=== PATIENT | male | born 1935 | race Caucasian/White ===

== ENCOUNTER 2017-10-02 07:14 | Day surgery (SDC) | payer MEDICARE ==
[2017-10-01 10:39] VITALS: BMI 31.4
[~2017-10-02 07:14] MED LIST: FLU VACC TS2017-18 (>65YR) 0.5 ML SYRINGE IM ONE
[2017-10-02 08:22] VITALS: BP 129/60; TEMP 97.2
--- NOTE | 2017-10-02 09:00 | RAD ---
RADIOGRAPH LUMBAR SPINE 4 VIEWS: HISTORY: 82-year-old male with low back pain and bilateral lumbar radiculopathy. TECHNIQUE: All standing views: AP, lateral neutral, lateral flexion, and lateral extension. COMPARISON: None. FINDINGS: There is diffuse osteopenia. Mild left lateral curvature with apex at L3. No major spondylolisthesis. Large flowing anterior endplate marginal osteophytes protruding into the prevertebral space, through out the visualized portions of the lower thoracic spine and throughout the lumbar spine except for L4 -5 and L5-S1. No major spondylolisthesis. T12-L1: Disc space maintained. L1-2: Disc space maintained. Mild, broad, shallow depression of the superior endplate of L2. L2-3: Slight degenerative retrolisthesis of L2 on L3 during flexion, which reduces in neutral and ext ension positions. L3-4: Moderate disc space narrowing. Midline laminectomy defect. L4-5: Severe disc space narrowing, with endplate sclerosis. Midline laminectomy defect. Bilateral onl ay bone chip fusion grafts around the posterior elements. L5-S1: Posterior aspect of the disc space is narrowed while the anterior aspect of the disc space is widened. Midline laminectomy defect. Bilateral onlay posterior element bone graft fusion chips. IMPRESSION: 1. DISH (Diffuse idiopathic skeletal hyperostosis). 2. Osteopenia. 3. Lumbar spondylosis with degenerative disc disease, greatest at L4-5, followed by L3-4. 4. Old mild compression fracture of L2. 5. Status post laminectomies and posterior element onlay bone graft fusions at the lower levels. 6. Minimally unstable degenerative retrolisthesis at L2-3. 7. Otherwise, no major spondylolisthesis. 8. See separate report of the CT myelogram. TRU POS: JAMES
--- NOTE | 2017-10-02 12:09 | CT ---
CT LUMBAR SPINE WITH CONTRAST CT GUIDED LUMBAR MYELOGRAM: Date: 10-02-17 History: 82-year-old male with chronic low back pain and bilateral lumbar radiculopathy. Comparison: No prior studies available. Technique: Signed informed consent obtained. Review of the metal fabricator welder images demonstrated hypertrophic bony changes, especially of the posterior elements, which would make fluoroscopically guided lumbar myelogram diffi cult. Therefore, it was elected to perform the procedure under CT guidance. Patient was placed prone on the CT table. Midline skin of lower back was prepped and draped in the usual sterile fashion. 25 g auge needle was used to apply buffered Lidocaine superficially and deeply. From the midline approach, a 3.5 inch, 22 gauge spinal needle was advanced under incremental step CT guidance, through the lami nectomy defect at L5-S1, into the thecal sac. Upon brisk return of clear CSF, a total of 10 ml of CSF was slowly removed, then slowly replaced with 10 ml of Isovue M300. Needle was removed. Patient crbrent rated the procedure very well. No complications. The patient was then placed on the stretcher. He was then tilted in various positions to allow even distribution of the intrathecal contrast material. Micah powell was then placed supine on the CT table and scan was performed from the T11-12 level to the S2-3 level. Coronal and sagittal reconstructions were obtained. FINDINGS: There are five lumbar type vertebrae. There is a mild left-convex lateral curvature with apex of curv ature at approximately L3-4. There is mild anterior wedge compression deformity of L2, representing a mild old compression fracture. There are bulky bridging flowing osteophytes throughout the lower tho racic spine, and upper and mid lumbar spine (DISH). The spinal canal is diffusely small in caliber on a congenital basis due to developmentally short pedicles. This is exacerbated by hypertrophic degene rative changes as described below. There is heavy atherosclerotic calcification of the abdominal aort a, common iliac arteries, internal iliac arteries, external iliac arteries, celiac artery, hepatic ar elena, splenic artery, superior mesenteric artery, and bilateral renal arteries. No aneurysm of the ab dominal aorta. No major pathology of the retroperitoneal or perivertebral spaces. T11-12: Mild central spinal canal stenosis almost entirely on developmental basis. Neural foramina ar e incompletely included on the images. Moderate bony hypertrophy of right facet complex. Mild degener ative hypertrophy of left facet complex. Mild disc bulge. T12-L1: Right posterior aspect of epidural fat pad is asymmetrically larger than the left, mildly ind enting the right posterior aspect of the thecal sac. Minimal disc bulge. Mild central spinal canal st enosis, mostly on a developmental basis. No high grade neural foraminal stenosis. No high grade disc space narrowing. L1-2: Conus medullaris terminates at lower L1 level. No high grade disc space narrowing. Mild diffuse disc bulge. Mild thecal sac stenosis, mostly on developmental basis. Mild right degenerative facet h ypertrophy. Left facet joint is almost normal. No high grade neural foraminal stenosis. L2-3: No high grade disc space narrowing. Prominent diffuse disc bulge, moderate ligamentum flavum th ickening, and mild to moderate degenerative facet hypertrophy, exacerbate the developmentally small c aliber spinal canal. Furthermore, the right paracentral and right lateral component of the disc bulge is asymmetrically larger than that of the left, further asymmetrically effacing the right side of th e thecal sac. Overall, the degree of central spinal canal stenosis and thecal sac stenosis is severe, especially on the right side. There is moderate bilateral neural foraminal stenosis, right worse patti n left. Slight degenerative retrolisthesis of L2 on L3. Vacuum disc phenomenon. L3-4: Moderate disc space narrowing. Spinal canal and thecal sac are generous in caliber due to midli ne laminectomy defect. Moderate to severe right neural foraminal stenosis. Mild to moderate left neur al foraminal stenosis. L4-5: Bilateral onlay bone graft fusion, with successful ankylosis of bilateral facet complexes. Davis re disc space narrowing. Moderate right neural foraminal stenosis with right lateral and far lateral endplate marginal osteophytes indenting the exiting right L4 nerve root. Moderate to severe left neur al foraminal stenosis. Midline laminectomy defect is present. Because of the defect, there is no high grade narrowing of the thecal sac in the anteroposterior dimension. However, the bilateral facet com plex bony hypertrophy and onlay bone graft fusion result in mild to moderate narrowing of the transve rse diameter of the thecal sac. Overall, the thecal sac caliber is mildly stenotic. There is asymmetr ic distribution of the remaining cauda equina nerve roots in the thecal sac beginning at this level, consistent with chronic arachnoiditis. This continues through the L5 level and into the S1 level. L5-S1: The posterior aspect of the disc space is narrowed, while the anterior aspect of the disc spac e is actually widened. Severe bilateral neural foraminal stenosis due to severe bilateral degenerativ e facet hypertrophy. There is severe bilateral degenerative facet disease. Midline laminectomy defect . Mild decrease in transverse diameter of the thecal sac. No significant narrowing of the anteroposte rior dimension of the thecal sac. Bridging osteophytes across the anterior aspects of the bilateral s acroiliac joints is also a manifestation of DISH. IMPRESSION: 1. Lumbar spondylosis with degenerative disc disease and facet osteoarthrosis of varying degrees. The degenerative disc disease is most severe at L3-4 and L4-5; and the facet osteoarthrosis is very davis re bilaterally at L5-S1. 2. Severe central spinal canal stenosis (asymmetrically worse on the right side) at L2-3. 3. Severe bilateral neural foraminal stenosis at L5-S1. 4. High grade neural foraminal stenosis at other levels. 5. Developmentally small caliber spinal canal exacerbated by the lumbar spondylosis. 6. Midline laminectomies at L3-4, L4-5, and L5-S1. 7. 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 8. DISH (Diffuse idiopathic skeletal hyperostosis). 9. osteopenia. 10. Mild old compression fracture of L2. 11. Extensive atherosclerotic disease. POS: JETHRO
== END 2017-10-02 10:40 | disposition home or self-care (01) ==
LOC: RAD 07:14
PROVIDERS: ATTEND Physician Assistant Surgical
DX: M47.16 Other spondylosis with myelopathy, lumbar region (principal); M51.16 Intervertebral disc disorders with radiculopathy, lumbar region; M48.061 Spinal stenosis, lumbar region without neurogenic claudication; M48.10 Ankylosing hyperostosis [Forestier], site unspecified; I48.91 Unspecified atrial fibrillation; G62.9 Polyneuropathy, unspecified; Z79.01 Long term (current) use of anticoagulants; Z88.0 Allergy status to penicillin; Z98.890 Other specified postprocedural states; Z95.0 Presence of cardiac pacemaker
CPT/HCPCS: 72120; 72132; 77002

== ENCOUNTER 2018-01-22 11:31 | Outpatient (CLI) | payer MEDICARE ==
[2018-01-22 15:03] LABS: Hemoglobin 11.8 g/dL (14.0-18.0); INR-International Normal Ratio 2.2; Mean Corpuscular HGB CONC 33.8 g/dL (32.0-36.0); Mean Corpuscular Hemoglobin 36.2 pg (27.0-31.0); Mean Platelet Volume 7.4 fL (7.4-10.4); PTT 38.8 SEC (22.9-36.1); Platelet Count 115 thou/uL (130-400); Prothrombin Time 25.3 SEC (12.0-14.7); RBC Distribution Width 13.2 % (11.5-14.5); Red Blood Cell (RBC) Count 3.26 mill/uL (4.70-6.10); White Blood Cell (WBC) Count 4.3 thou/uL (4.8-10.8)
[2018-01-22 15:06] LABS: Anion Gap 9 mmol/L (10-20); BUN (Urea Nitrogen) 32 mg/dL (8.4-25.7); Calc. Creatinine Clearance 0 mL/min (70-130); Calcium 10.4 mg/dL (7.8-10.44); Carbon Dioxide 27 mmol/L (23-31); Chloride 107 mmol/L (98-107); Estimated GFR-MDRD 42; Glucose 96 mg/dL (83-110); Potassium 4.5 mmol/L (3.5-5.1); Sodium 138 mmol/L (136-145)
--- NOTE | 2018-01-22 20:28 | EKG ---
Test Reason : Blood Pressure : / mmHG Vent. Rate : 071 BPM Atrial Rate : 073 BPM P-R Int : 000 ms QRS Dur : 144 ms QT Int : 446 ms P-R-T Axes : 000 -69 120 degrees QTc Int : 484 ms Poor data quality, interpretation may be adversely affected Electronic ventricular pacemaker No previous ECGs available Confirmed by KEVIN TUBBS (2) on 01/22/2018 8:28:06 PM Referred By: KARINE Confirmed By:KEVIN TUBBS
== END 2018-01-22 11:32 | disposition home or self-care (01) ==
LOC: LABBT 11:31
PROVIDERS: ATTEND Surgery
DX: Z01.818 Encounter for other preprocedural examination (principal); M48.061 Spinal stenosis, lumbar region without neurogenic claudication; M54.16 Radiculopathy, lumbar region; Z95.0 Presence of cardiac pacemaker
CPT/HCPCS: 80048; 85027; 85610; 85730; 93005; 93010

== ENCOUNTER 2018-09-11 05:43 | Outpatient (CLI) | payer MEDICARE ==
[2018-09-11 13:45] LABS: Mean Corpuscular HGB CONC 33.5 g/dL (32.0-36.0); Mean Corpuscular Hemoglobin 34.7 pg (27.0-31.0); Mean Platelet Volume 8.8 fL (7.4-10.4); Platelet Count 106 thou/uL (130-400); RBC Distribution Width 14.5 % (11.5-14.5); Red Blood Cell (RBC) Count 3.17 mill/uL (4.70-6.10); White Blood Cell (WBC) Count 3.5 thou/uL (4.8-10.8)
[2018-09-11 13:49] LABS: INR-International Normal Ratio 2.2; PTT 40.4 SEC (22.9-36.1); Prothrombin Time 24.7 SEC (12.0-14.7)
[2018-09-11 14:09] LABS: Anion Gap 13 mmol/L (10-20); BUN (Urea Nitrogen) 41 mg/dL (8.4-25.7); Calc. Creatinine Clearance 0 mL/min (70-130); Calcium 10.2 mg/dL (7.8-10.44); Carbon Dioxide 23 mmol/L (23-31); Chloride 108 mmol/L (98-107); Estimated GFR-MDRD 29; Glucose 100 mg/dL (83-110); Potassium 4.7 mmol/L (3.5-5.1); Sodium 139 mmol/L (136-145)
== END 2018-09-11 05:44 | disposition home or self-care (01) ==
LOC: LABBT 05:43
PROVIDERS: ATTEND Surgery
DX: Z01.818 Encounter for other preprocedural examination (principal); M54.16 Radiculopathy, lumbar region; M48.061 Spinal stenosis, lumbar region without neurogenic claudication
CPT/HCPCS: 80048; 85027; 85610; 85730; 93005; 93010

== ENCOUNTER 2018-09-18 06:58 | Observation (INO) | payer MEDICARE ==
[2018-09-11 12:12] VITALS: BMI 31.4
[2018-09-18] MEDS ORDERED: Levofloxacin 500 mg/D5W 100 ml Premix Bag ONE (08:38)
[2018-09-18] MEDS ORDERED: Clindamycin/D5W 900 mg/50 ml Premix Bag ONE (08:38)
[2018-09-18 08:50] LABS: INR-International Normal Ratio 1.1; PTT 30.9 SEC (22.9-36.1); Prothrombin Time 13.9 SEC (12.0-14.7)
[2018-09-18 08:54] LABS: Hemoglobin 10.4 g/dL (14.0-18.0); Mean Corpuscular HGB CONC 33.3 g/dL (32.0-36.0); Mean Corpuscular Hemoglobin 34.4 pg (27.0-31.0); Platelet Count 116 thou/uL (130-400); RBC Distribution Width 14.5 % (11.5-14.5); Red Blood Cell (RBC) Count 3.03 mill/uL (4.70-6.10); White Blood Cell (WBC) Count 3.1 thou/uL (4.8-10.8)
[2018-09-18 08:59] LABS: Anion Gap 14 mmol/L (10-20); BUN (Urea Nitrogen) 36 mg/dL (8.4-25.7); Calc. Creatinine Clearance 36 mL/min (70-130); Calcium 10.2 mg/dL (7.8-10.44); Carbon Dioxide 20 mmol/L (23-31); Chloride 108 mmol/L (98-107); Estimated GFR-MDRD 27; Glucose 111 mg/dL (83-110); Sodium 138 mmol/L (136-145)
[2018-09-18] MEDS ORDERED: Fentanyl 100 MCG/2 ML VIAL ONE ×3 (09:29→13:59)
[2018-09-18] MEDS ORDERED: Bacitracin Zinc Ointment 30 gm TUBE ONE (09:49)
[2018-09-18] MEDS ORDERED: Thrombin 5000 UNITS/5 ML VIAL ONE ×2 (09:49→12:23)
[2018-09-18] MEDS ORDERED: Sodium Chloride 0.9% 10 ML ONE (09:49)
[2018-09-18] MEDS ORDERED: Midazolam HCl 2 mg/2 ml Vial ONE (10:39)
[2018-09-18] MEDS ORDERED: traMADol HCl 50 MG TAB PO PRN (13:35)
[2018-09-18] MEDS ORDERED: Promethazine HCl 25 MG/ML VIAL IM PRN ×2 (13:35→14:15)
[2018-09-18] MEDS ORDERED: Milk Of Magnesia 30 ML UDCUP PO PRN (13:35)
[2018-09-18] MEDS ORDERED: Acetaminophen/Codeine 30-300mg Tablet PO PRN (13:35)
[2018-09-18] MEDS ORDERED: Acetaminophen 325 MG TAB PO PRN (13:35)
[2018-09-18] MEDS ORDERED: HYDROcodone/Acetaminophen 7.5/325 mg Tablet PO PRN (13:35)
[2018-09-18] MEDS ORDERED: Bisacodyl 10 MG SUPP PR PRN (13:35)
[2018-09-18] MEDS ORDERED: Morphine 2 MG/ML SYRINGE SLOW IVP PRN (13:35)
[2018-09-18] MEDS ORDERED: Mag-Al 1200 mg/1200 mg/30 ML UDCUP PO PRN (13:35)
[2018-09-18] MEDS ORDERED: Fleet Enema 133 ML BOT PR PRN (13:35)
[2018-09-18] MEDS ORDERED: PHENYLEPHRINE-NS 100 MCG/ML 10 ML SYRINGE ONE (13:52)
[2018-09-18] MEDS ORDERED: Lidocaine 1% PF 5 ML VIAL ONE (13:52)
[2018-09-18] MEDS ORDERED: Rocuronium Bromide 10 MG/ML (10ML VIAL) ONE (13:52)
[2018-09-18] MEDS ORDERED: Metoclopramide HCl 10 MG/2 ML VIAL ONE (13:52)
[2018-09-18] MEDS ORDERED: Glycopyrrolate 0.2 MG/ML 5 ML SYRINGE ONE (13:52)
[2018-09-18] MEDS ORDERED: PROPOFOL 200 MG/20 ML VIAL ONE (13:52)
[2018-09-18] MEDS ORDERED: Dexamethasone 20 MG/5 ML VIAL ONE (13:52)
[2018-09-18] MEDS ORDERED: Ondansetron PF 4 MG/2 ML Vial ONE (13:52)
[2018-09-18] MEDS ORDERED: HYDROmorphone 2 MG/ML VIAL SLOW IVP PRN (14:15)
[2018-09-18] MEDS ORDERED: Promethazine HCl 25 MG/ML VIAL SLOW IVP PRN (14:15)
[2018-09-18] MEDS ORDERED: Ondansetron HCl/PF 4 MG/2 ML Vial IVP PRN (14:15)
[2018-09-18] MEDS ORDERED: HYDROmorphone 2 MG/ML VIAL ONE (14:16)
--- NOTE | 2018-09-18 14:29 | OP ---
DATE OF PROCEDURE: 09/18/2018 OPERATING ROOM: OR 12. WOUND CLASSIFICATION: Type 1 wound. SENIOR POLICY ADVISOR: Cali Giang PA-C. 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 I had discussed with the patient and his family that while he had no obvious stenosis on his prior CT myelogram a year ago, I was concerned about the development of this over the last year, and he clearly already had stenosis at L2-L3 and as such, I advocated for L2-L3 laminectomy, bilateral revision L3-L4, and also assessment of the L4- L5 and L5-S1 segments as well, as he has a history of two prior surgeries. PROCEDURES PERFORMED: 1. L2-L3 laminectomy, partial facetectomy, foraminotomies. 2. Bilateral L3-L4 revision hemilaminotomies with bilateral modifier, partial facetectomy, and foraminotomies. 3. Exploration of L4-L5 and L5-S1 segments. DESCRIPTION OF PROCEDURE: After informed consent was obtained from the patient, the patient was brought to OR. Proper patient pause and identification were carried out. He was placed in an excellent general endotracheal anesthesia and positioned prone on the OR table. All appropriate points were padded. We identified the prior lumbar wound from L3-S1 and this region was sterilely cleansed, prepared, and draped, slightly extended cephalad. After proper patient pause and identification, sterile cleansing, preparation, and draping, we then performed L2-L3 laminectomy, partial facetectomy, foraminotomies, and bilateral revision of L3-L4, hemilaminotomy, and foraminotomies, and he had developed bone spurring compressing the L4 nerve roots and this was freed. Exploring at L4-L5 and L5-S1, there was a significant scar tissue, but did not appear from review of the imaging and intraoperative assessment to be the need to further decompress the L5-S1 nerve roots at L4-L5 and L5-S1. As the decompression was satisfactory, and the main issue was likely scarring, which we did not want to disrupt further with aggressive work near the dural tube. There was no spinal fluid leak. Copious irrigation occurred throughout and maximized hemostasis. The wound was then closed in anatomic layers following sprinkling of vancomycin powder. The patient then emerged from anesthesia. Job ID: [id number]
[2018-09-18] MEDS: Sodium Chloride 0.9% 1,000 ML IV SCH (17:46)
[2018-09-18] MEDS ORDERED: traZODone HCl 50 MG TAB PO SCH (21:00)
[2018-09-18] MEDS: Clindamycin/D5W 900 MG in Premix Bag 1 BAG IVPB SCH (21:18)
[2018-09-18] MEDS: Carvedilol 6.25 MG TAB PO SCH (21:23)
[2018-09-18] MEDS: Allopurinol 100 MG TAB PO SCH (21:23)
[2018-09-18] MEDS: Sacubitril 24.5 MG/Valsartan 25.5 MG TABLET PO SCH ×2 (21:24→21:32)
[2018-09-19] MEDS: tiZANidine HCl 4 MG TAB PO PRN ×2 (04:43→15:22)
[2018-09-19] MEDS: Clindamycin/D5W 900 MG in Premix Bag 1 BAG IVPB SCH (04:44)
[2018-09-19] MEDS: Sodium Chloride 0.9% 1,000 ML IV SCH ×2 (06:47→17:27)
[2018-09-19] MEDS ORDERED: Rosuvastatin 10 MG TAB PO SCH (09:00)
[2018-09-19] MEDS ORDERED: Tamsulosin HCl 0.4 MG CAP PO SCH (09:00)
[2018-09-19] MEDS ORDERED: Furosemide 40 MG TAB PO SCH (09:00)
[2018-09-19] MEDS: Carvedilol 6.25 MG TAB PO SCH (09:12)
[2018-09-19] MEDS: Allopurinol 100 MG TAB PO SCH (09:12)
[2018-09-19] MEDS: Sacubitril 24.5 MG/Valsartan 25.5 MG TABLET PO SCH (12:46)
--- NOTE | 2018-09-19 15:21 | PRG ---
DATE OF SERVICE: 09/19/2018 This is a postoperative recheck. Mr. Chaparro is now postoperative day #1, having undergone multilevel lumbar laminectomies. The patient is doing well postoperatively. He does have some significant incisional back pain, but otherwise has resolution of his bilateral lower extremity symptoms. He has been walking. He is tolerating a diet. The main concern now is his discharge plan as he does not have much help at home. His is unable to take care of him and he will require inpatient rehab to help him improve postoperatively. We are waiting for placement. He has good strength in the bilateral lower extremities at this time. Again, both he and his were pleased with his outcome postoperatively. We will wait for placement at a facility, but once this has been completed, he is stable for discharge. I should note that we have advised him to stop taking his Coumadin for two weeks postoperatively. Again, the patient and his were pleased with his outcome at this time. Job ID: [id number]
[2018-09-19 16:14] VITALS: BP 101/63; TEMP 97.8
== END 2018-09-19 18:43 ==
LOC: SDC 06:58 → SJJU 13:35
PROVIDERS: ADMIT Surgery; ATTEND Surgery
PROC: 01NB0ZZ Release Lumbar Nerve, Open Approach (ICD-10-PCS; principal; 2018-09-18)
DX: M48.061 Spinal stenosis, lumbar region without neurogenic claudication (principal); Z98.890 Other specified postprocedural states; Z88.0 Allergy status to penicillin; Z79.01 Long term (current) use of anticoagulants; Z79.899 Other long term (current) drug therapy; Z95.0 Presence of cardiac pacemaker
CPT/HCPCS: 63042; 63047; 76000; 80048; 85027; 85610; 85730; 96361 ×2; 96365; 96366; 96367; 96372; 96374 ×2; 97116; 97139 ×3; 97535; G0378; J1100; J1170; J1956; J2001; J2250; J2405; J2550; J2704; J2765; J3010; J3370; J3490

== ENCOUNTER 2019-03-30 06:43 | Day surgery (SDC) | payer MEDICARE ==
[2019-03-27 10:08] VITALS: BMI 31.8
[2019-03-30 08:32] VITALS: BP 132/62; TEMP 97
--- NOTE | 2019-03-30 09:25 | RAD ---
LUMBAR SPINE COMPLETE WITH BENDING: HISTORY: Leg weakness and low back pain. COMPARISON: Lumbar spine radiographs from 2018. FINDINGS: Multiple bridging anterior osteophytes throughout the lumbar spine. Severe degenerative disk space d isease at L4-5. Mild narrowing at L3-4. Old compression deformity at the superior end plate of L2. Dense vascular calcifications of the aorta and splenic artery. Low-grade levoscoliosis. Advanced de generative disease of both SI joints. No acute fracture is appreciated. Laminectomy changes of the lower lumbar spine. No significant translation with flexion or extension. IMPRESSION: Severe degenerative changes. No significant translation with flexion or extension. POS: CET
[2019-03-30] MEDS ORDERED: Iopamidol-M 200 41% 10 ML VIAL FS ONE (13:57)
--- NOTE | 2019-03-30 14:42 | CT ---
CT lumbar spine with contrast CT guided lumbar myelogram: DATE: 03/30/2019 HISTORY: 82-year-old male with lumbar radiculopathy: Right foot drop (right lower extremity hypesthesia and we akness). COMPARISON: 10/02/2017 TECHNIQUE: Signed informed consent obtained. Patient placed prone on CT table. L3 level selected. Skin of lower back prepped and draped in usual sterile fashion. 25-gauge needle used to apply buffered lidocaine superficially. From midline approach, a 3.5 inch, 22-gauge spinal needle was advanced under increment al step CT guidance, through the laminectomy defect at the L3 level, into the thecal sac. Upon brisk return of clear CSF, 10 mL of Isovue-M 300 was injected intrathecally. Needle was removed. Nathalie ent tolerated the procedure very well. No complications. The patient was then placed on the stretcher. He was then tilted in various positions to allow even distribution of the intrathecal cont rast material. Patient was then placed supine on the CT table, and scan was performed from T11-12 to mid sacral level. Coronal and sagittal reconstructions. FINDINGS: There is a right pleural effusion which contains an approximately 7.5 x 2 cm collection of calcific d ensities within it, of uncertain etiology. Heavy atherosclerotic calcification of abdominal aorta and its branches. 5 lumbar-type vertebrae. Again noted mild anterior wedge compression deformity of L2. Bulky bridging flowing osteophytes throughout the lower thoracic spine, and upper and mid lumbar spine consistent with DISH. The spinal canal is diffusely small in caliber on a congenital basis due to developmentall y short pedicles. This is exacerbated by hypertrophic degenerative changes as described below. T11-12: Mild central spinal canal stenosis almost entirely on developmental basis. Moderate right fac et DJD with bony hypertrophy. At least moderate bilateral neural foraminal stenosis. Minimal disc bulge. T12-L1: Asymmetrically thickened right ligamentum flavum. Disc space maintained. Tiny bubble of intra thecal injected gas. Mild bilateral facet DJD. Mild central spinal canal stenosis. Mild to moderate bilateral neural foraminal stenosis. L1-2: Conus medullaris terminates at this level. No high-grade disc space narrowing. Mild diffuse dis c bulge. No high-grade neural foraminal stenosis. Mild thecal sac stenosis. Mild right facet DJD. L2-3: No high-grade disc space narrowing. Diffuse disc bulge is again noted. There is a new midline l aminectomy defect, and interval resection of much of ligamentum flavum, resulting in significant interval improvement in the previously severe central spinal canal stenosis. Moderate to severe bilat eral neural foraminal stenosis. Slight degenerative retrolisthesis of L3 on L4. Moderate left facet DJD. Mild to moderate right facet DJD. Cauda equina nerve roots at the right ventral aspect of thecal sac appears slightly clumped. Current degree of thecal sac stenosis is moderate. L3-4: Generous caliber of spinal canal and thecal sac due to old midline laminectomy defect. Moderate to severe right neural foraminal stenosis. Mild to moderate left neural foraminal stenosis. Moderate disc space narrowing. Moderate bilateral facet DJD. L4-5: Severe disc space narrowing. Severe bilateral facet DJD bony hypertrophy. Uncertain whether monica e of this bony hypertrophy on the right represents onlay bone graft. Midline laminectomy defect. Asymmetrical severe clumping of remaining nerve roots within the thecal sac. Mild thecal sac stenosis . Moderate right neural foraminal stenosis. Moderate to severe left neural foraminal stenosis. Diffuse disc bulge-osteophytic bar complex contributes to the bilateral neural foraminal stenosis. No major interval change. L5-S1: Posterior aspect of disc space is narrowed while the anterior aspect of the disc spaces widene d. Very severe bilateral neural foraminal stenosis due to very severe bilateral degenerative facet hypertrophy. Midline laminectomy defect. Mild decrease in transverse diameter of thecal sac. No signi ficant narrowing of the anteroposterior dimension of the thecal sac. Peripheral clumping of cauda equina nerve roots. IMPRESSION: 1. Lumbar spondylosis, with degenerative disc disease and facet osteoarthrosis of varying degrees. 2. There are degenerative disc disease is most severe at L3-4 and L4-5. 3. The facet osteoarthrosis is very severe bilaterally at L5-S1. 4. Severe bilateral neural foraminal stenosis at L5-S1, unchanged. 5. 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 6. The previously severe central spinal canal stenosis at L2-3 has been relieved by interval Laminectomy at that level. 7. Old midline laminectomies at L3-4, L4-5, and L5-S1. 8. DISH (diffuse idiopathic skeletal hyperostosis). 9. Osteopenia. 10. Mild old compression fracture of L2. 11. Other levels of neural foraminal stenosis. T12. Right pleural effusion containing an usual, large cluster of calcific densities, incompletely im aged. This can be further evaluated with chest CT.
== END 2019-03-30 10:35 | disposition home or self-care (01) ==
LOC: RAD 06:43
PROVIDERS: ATTEND Physician Assistant Surgical
DX: M47.26 Other spondylosis with radiculopathy, lumbar region (principal); M47.817 Spondylosis without myelopathy or radiculopathy, lumbosacral region; M48.04 Spinal stenosis, thoracic region; M48.061 Spinal stenosis, lumbar region without neurogenic claudication; M48.07 Spinal stenosis, lumbosacral region; M48.10 Ankylosing hyperostosis [Forestier], site unspecified; M21.371 Foot drop, right foot; I70.0 Atherosclerosis of aorta; J90 Pleural effusion, not elsewhere classified; M10.9 Gout, unspecified; I25.10 Atherosclerotic heart disease of native coronary artery without angina pectoris; G47.00 Insomnia, unspecified; G47.33 Obstructive sleep apnea (adult) (pediatric); N40.0 Benign prostatic hyperplasia without lower urinary tract symptoms; E78.5 Hyperlipidemia, unspecified; K21.9 Gastro-esophageal reflux disease without esophagitis; G62.9 Polyneuropathy, unspecified; I11.0 Hypertensive heart disease with heart failure; I50.9 Heart failure, unspecified; Z87.891 Personal history of nicotine dependence; Z79.82 Long term (current) use of aspirin; Z79.899 Other long term (current) drug therapy; Z88.0 Allergy status to penicillin; Z98.890 Other specified postprocedural states
CPT/HCPCS: 72100; 72132; 77002